=== PATIENT | female | born 1950 | race Caucasian/White ===

== ENCOUNTER 2018-01-31 13:44 | Outpatient (CLI) | payer OTHER ==
[~2018-01-31 13:44] MED LIST: CALC-8 PO; DOCU-28 PO; HYDR-565 PO; IBUP-24 PO
== END 2018-01-31 23:59 | disposition home or self-care (01) ==
LOC: 64 CT 13:44
PROVIDERS: ATTEND Surgery
DX: S09.90XA Unspecified injury of head, initial encounter (principal); X58.XXXA Exposure to other specified factors, initial encounter; Y93.89 Activity, other specified; Y92.89 Other specified places as the place of occurrence of the external cause; Y99.8 Other external cause status
CPT/HCPCS: 70450

== ENCOUNTER 2018-05-23 09:39 | Outpatient (CLI) | payer OTHER ==
[2018-05-23 10:03] LABS: BASOPHILS % (AUTO) 0.5 % (0-1); EOSINOPHILS # (AUTO) 0.3 X10'3 (0-0.9); HEMATOCRIT 43.2 % (35.0-45.0); HEMOGLOBIN 14.8 g/dl (12.0-16.0); LYMPHOCYTES # (AUTO) 1.3 X10'3 (1.1-4.8); LYMPHOCYTES % (AUTO) 19.1 % (21-51); MEAN CORPUSCULAR HEMOGLOBIN 30.3 PG (27.0-31.0); MEAN CORPUSCULAR HGB CONC 34.2 % (33.0-36.5); MEAN CORPUSCULAR VOLUME 88.6 FL (78-98); MEAN PLATELET VOLUME 7.9 FL (7.4-10.4); MONOCYTES # (AUTO) 0.5 X10'3 (0-0.9); MONOCYTES % (AUTO) 8.1 % (2-12); NEUTROPHILS # (AUTO) 4.5 X10'3 (1.8-7.7); NEUTROPHILS % (AUTO) 67.3 % (42-75); PLATELET COUNT 323 X10'3 (140-440); RED BLOOD COUNT 4.88 X10'6 (4.20-5.60); RED CELL DISTRIBUTION WIDTH 12.6 % (11.5-14.5); WHITE BLOOD COUNT 6.8 X10'3 (4.5-11.0)
== END 2018-05-23 23:59 | disposition home or self-care (01) ==
LOC: LAB 09:39
PROVIDERS: ATTEND Specialist
DX: T84.52XA Infection and inflammatory reaction due to internal left hip prosthesis, initial encounter (principal); Z96.643 Presence of artificial hip joint, bilateral; Z98.51 Tubal ligation status; Y79.2 Prosthetic and other implants, materials and accessory orthopedic devices associated with adverse incidents; Y92.89 Other specified places as the place of occurrence of the external cause
CPT/HCPCS: 36415; 85025; 85651; 86140

== ENCOUNTER 2019-10-16 10:27 | Outpatient (CLI) | payer OTHER ==
[~2019-10-16 10:27] MED LIST changes: +HYDR-4353 PO; -HYDR-565 PO
== END 2019-10-16 23:59 | disposition home or self-care (01) ==
LOC: RAD 10:27
PROVIDERS: ATTEND Family Medicine
DX: M25.552 Pain in left hip (principal); Z98.890 Other specified postprocedural states; Z96.642 Presence of left artificial hip joint
CPT/HCPCS: 73502

== ENCOUNTER 2019-11-06 06:18 | Outpatient (CLI) | payer OTHER ==
[2019-11-06 06:54] LABS: BASOPHILS # (AUTO) 0.1 X10'3 (0-0.2); BASOPHILS % (AUTO) 0.9 % (0-1); EOSINOPHILS # (AUTO) 0.5 X10'3 (0-0.9); EOSINOPHILS % (AUTO) 7.2 % (0-6); LYMPHOCYTES # (AUTO) 1.4 X10'3 (1.1-4.8); LYMPHOCYTES % (AUTO) 21.2 % (21-51); MEAN CORPUSCULAR HEMOGLOBIN 30.4 PG (27.0-31.0); MEAN CORPUSCULAR HGB CONC 34.2 g/dL (33.0-36.5); MEAN CORPUSCULAR VOLUME 88.7 FL (78-98); MEAN PLATELET VOLUME 7.8 FL (7.4-10.4); MONOCYTES # (AUTO) 0.6 X10'3 (0-0.9); MONOCYTES % (AUTO) 8.8 % (2-12); NEUTROPHILS # (AUTO) 4.2 X10'3 (1.8-7.7); NEUTROPHILS % (AUTO) 61.9 % (42-75); PLATELET COUNT 318 X10'3 (140-440); RED BLOOD COUNT 4.62 X10'6 (4.20-5.60); RED CELL DISTRIBUTION WIDTH 13.1 % (11.5-14.5); WHITE BLOOD COUNT 6.8 X10'3 (4.5-11.0)
[2019-11-06 07:07] LABS: ALANINE AMINOTRANSFERASE 23 U/L (12-78); ALBUMIN 3.5 G/DL (3.4-5.0); ALBUMIN/GLOBULIN RATIO 1.1 (1.1-1.5); ALKALINE PHOSPHATASE 76 IU/L (46-116); ANION GAP 6 (8-16); ASPARTATE AMINO TRANSFERASE 18 U/L (10-37); BILIRUBIN,TOTAL 0.3 MG/DL (0.1-1.0); BLOOD UREA NITROGEN 25 MG/DL (7-18); BUN/CREATININE RATIO 32.5 (6.6-38.0); CALCIUM 8.5 MG/DL (8.5-10.1); CHLORIDE 110 MMOL/L (99-107); CHOL/HDL RATIO 3.1 (0.00-4.99); CHOLESTEROL 210 MG/DL (0-200); CREATININE 0.77 MG/DL (0.40-0.90); GLUCOSE 96 MG/DL (70-104); HDL CHOLESTEROL 68 MG/DL (35-60); LDL CHOLESTEROL 130 MG/DL (50-100); POTASSIUM 4.3 MMOL/L (3.5-5.1); SODIUM 144 MMOL/L (135-145); TOTAL CARBON DIOXIDE 28.5 MMOL/L (24-32); TOTAL PROTEIN 6.8 G/DL (6.4-8.2); TRIGLYCERIDES 49 MG/DL (20-135); eGFR 74 ML/MIN
== END 2019-11-06 23:59 | disposition home or self-care (01) ==
LOC: LAB 06:18
PROVIDERS: ATTEND Family Medicine
DX: E78.5 Hyperlipidemia, unspecified (principal); R53.81 Other malaise; I10 Essential (primary) hypertension
CPT/HCPCS: 36415; 80053; 80061; 85025

== ENCOUNTER 2019-12-13 08:38 | Outpatient (CLI) | payer OTHER | END 2019-12-13 23:59 | disposition home or self-care (01) | LOC: RAD 08:38 | PROVIDERS: ATTEND Family Medicine | DX: R14.0 Abdominal distension (gaseous) (principal) | CPT/HCPCS: 76700 ==

== ENCOUNTER 2020-01-15 06:15 | Outpatient (CLI) | payer OTHER ==
[2020-01-15 11:52] LABS: CREATININE 0.79 MG/DL (0.40-0.90); eGFR 72 ML/MIN
== END 2020-01-15 23:59 | disposition home or self-care (01) ==
LOC: LAB 06:15
PROVIDERS: ATTEND Family Medicine
DX: Z13.89 Encounter for screening for other disorder (principal)
CPT/HCPCS: 36415; 82565

== ENCOUNTER 2020-01-16 08:37 | Outpatient (CLI) | payer OTHER ==
[2020-01-16] MEDS ORDERED: iohexol 300mg/ml 100ml inj. ONE (08:50)
== END 2020-01-16 23:59 | disposition home or self-care (01) ==
LOC: 64 CT 08:37
PROVIDERS: ATTEND Family Medicine
DX: K57.30 Diverticulosis of large intestine without perforation or abscess without bleeding (principal); K76.89 Other specified diseases of liver
CPT/HCPCS: 74177; Q9967

== ENCOUNTER 2020-01-29 06:13 | Day surgery (SDC) | payer OTHER ==
[2020-01-29 06:20] VITALS: BP 148/92
[2020-01-29] MEDS ORDERED: LIDOcaine Viscous 15ml cup ONE (06:24)
[2020-01-29] MEDS ORDERED: MIDAZolam 5mg/5ml vial ONE (06:24)
[2020-01-29] MEDS ORDERED: fentaNYL/PF 50MCG/1 ML 2ML syringe ONE (06:24)
[2020-01-29] MEDS ORDERED: DICY10CA88 PO (06:34)
[2020-01-29 07:35] VITALS: BP 125/52
[2020-01-29 07:45] VITALS: BP 123/73
[2020-01-29 07:55] VITALS: BP 122/73
== END 2020-01-29 08:15 | disposition home or self-care (01) ==
LOC: GI LAB 06:13
PROVIDERS: ATTEND Internal Medicine Gastroenterology
DX: Z12.11 Encounter for screening for malignant neoplasm of colon (principal); K57.30 Diverticulosis of large intestine without perforation or abscess without bleeding; D12.0 Benign neoplasm of cecum; Z80.0 Family history of malignant neoplasm of digestive organs
CPT/HCPCS: 45385; 99152; C1773; J2250; J3010; J7040; 99153

== ENCOUNTER 2020-05-28 13:33 | Outpatient (CLI) | payer BC, OTHER ==
[~2020-05-28 13:33] MED LIST changes: -CALC-8 PO; +DICY10CA88 PO; -DOCU-28 PO; -HYDR-4353 PO
== END 2020-05-28 23:59 | disposition home or self-care (01) ==
LOC: RAD 13:33
PROVIDERS: ATTEND Family Medicine
DX: M79.672 Pain in left foot (principal); R60.9 Edema, unspecified
CPT/HCPCS: 73721

== ENCOUNTER 2020-08-04 10:05 | Outpatient (CLI) | payer BC | END 2020-08-04 23:59 | disposition home or self-care (01) | LOC: LAB 10:05 | PROVIDERS: ATTEND Family Medicine | DX: E03.9 Hypothyroidism, unspecified (principal) | CPT/HCPCS: 36415; 84439; 84443; 84481 ==

== ENCOUNTER 2020-12-09 06:11 | Outpatient (CLI) | payer BC ==
[2020-12-09 07:54] LABS: BASOPHILS # (AUTO) 0.1 X10'3 (0-0.2); BASOPHILS % (AUTO) 0.7 % (0-1); EOSINOPHILS # (AUTO) 0.3 X10'3 (0-0.9); EOSINOPHILS % (AUTO) 4.5 % (0-6); HEMATOCRIT 43.6 % (35.0-45.0); HEMOGLOBIN 14.5 g/dl (12.0-16.0); LYMPHOCYTES # (AUTO) 1.4 X10'3 (1.1-4.8); LYMPHOCYTES % (AUTO) 19.2 % (21-51); MEAN CORPUSCULAR HEMOGLOBIN 29.5 PG (27.0-31.0); MEAN CORPUSCULAR HGB CONC 33.2 g/dL (33.0-36.5); MEAN CORPUSCULAR VOLUME 88.9 FL (78-98); MEAN PLATELET VOLUME 8.4 FL (7.4-10.4); MONOCYTES # (AUTO) 0.6 X10'3 (0-0.9); MONOCYTES % (AUTO) 8.3 % (2-12); NEUTROPHILS % (AUTO) 67.3 % (42-75); PLATELET COUNT 320 X10'3 (140-440); RED CELL DISTRIBUTION WIDTH 13.1 % (11.5-14.5); WHITE BLOOD COUNT 7.5 X10'3 (4.5-11.0)
[2020-12-09 08:04] LABS: ALANINE AMINOTRANSFERASE 28 U/L (12-78); ALBUMIN 3.7 G/DL (3.4-5.0); ALKALINE PHOSPHATASE 83 IU/L (46-116); ANION GAP 9 (8-16); ASPARTATE AMINO TRANSFERASE 20 U/L (10-37); BILIRUBIN,TOTAL 0.4 MG/DL (0.1-1.0); BLOOD UREA NITROGEN 20 MG/DL (7-18); BUN/CREATININE RATIO 30.8 (6.6-38.0); CALCIUM 9.1 MG/DL (8.5-10.1); CHLORIDE 107 MMOL/L (99-107); CREATININE 0.65 MG/DL (0.40-0.90); GLUCOSE 102 MG/DL (70-104); POTASSIUM 4.3 MMOL/L (3.5-5.1); SODIUM 144 MMOL/L (135-145); TOTAL CARBON DIOXIDE 27.9 MMOL/L (24-32); TOTAL PROTEIN 7.5 G/DL (6.4-8.2); eGFR 90 ML/MIN
== END 2020-12-09 23:59 | disposition home or self-care (01) ==
LOC: LAB 06:11
PROVIDERS: ATTEND Family Medicine
DX: R70.0 Elevated erythrocyte sedimentation rate (principal); R94.4 Abnormal results of kidney function studies
CPT/HCPCS: 36415; 80053; 85025; 85651

== ENCOUNTER 2020-12-11 08:37 | Outpatient (CLI) | payer BC | END 2020-12-11 23:59 | disposition home or self-care (01) | LOC: 64 CT 08:37 | PROVIDERS: ATTEND Family Medicine | DX: S06.0X0A Concussion without loss of consciousness, initial encounter (principal); X58.XXXA Exposure to other specified factors, initial encounter; Y93.89 Activity, other specified; Y92.89 Other specified places as the place of occurrence of the external cause; Y99.8 Other external cause status | CPT/HCPCS: 70470; Q9967 ==

== ENCOUNTER 2021-04-11 14:23 | Emergency (ER) | payer BC, MEDICARE ==
[~2021-04-11] VITALS: Ht 167.6 cm; Wt 63.0 kg
[2021-04-11 14:41] VITALS: BP 146/91
[2021-04-11] MEDS ORDERED: ALBU6.7H9 INH (15:18)
[2021-04-11] MEDS ORDERED: DEXA4TAB67 PO (15:18)
[2021-04-11] MEDS ORDERED: AZIT-31 PO (15:18)
--- NOTE | 2021-04-11 15:25 | NUR ---
PT SEEN AND DC'D BY PROVIDER
== END 2021-04-11 15:30 | disposition home or self-care (01) ==
LOC: ER 14:23
DX: U07.1 COVID-19 (principal); J40 Bronchitis, not specified as acute or chronic
CPT/HCPCS: 71045; 99283

== ENCOUNTER 2022-01-19 06:13 | Outpatient (CLI) | payer BC, MEDICARE ==
[~2022-01-19 06:13] MED LIST changes: +ALBU6.7H9 INH; +DEXA4TAB67 PO
[2022-01-19 07:23] LABS: BASOPHILS # (AUTO) 0.1 X10'3 (0-0.2); EOSINOPHILS # (AUTO) 0.6 X10'3 (0-0.9); EOSINOPHILS % (AUTO) 8.5 % (0-6); HEMATOCRIT 45.1 % (35.0-45.0); HEMOGLOBIN 14.9 g/dl (12.0-16.0); LYMPHOCYTES # (AUTO) 1.4 X10'3 (1.1-4.8); LYMPHOCYTES % (AUTO) 19.2 % (21-51); MEAN CORPUSCULAR HEMOGLOBIN 28.9 PG (27.0-31.0); MEAN CORPUSCULAR HGB CONC 33.1 g/dL (33.0-36.5); MEAN CORPUSCULAR VOLUME 87.2 FL (78-98); MEAN PLATELET VOLUME 8.2 FL (7.4-10.4); MONOCYTES # (AUTO) 0.6 X10'3 (0-0.9); MONOCYTES % (AUTO) 8.3 % (2-12); NEUTROPHILS # (AUTO) 4.5 X10'3 (1.8-7.7); PLATELET COUNT 333 X10'3 (140-440); RED BLOOD COUNT 5.17 X10'6 (4.20-5.60); RED CELL DISTRIBUTION WIDTH 13.4 % (11.5-14.5); WHITE BLOOD COUNT 7.2 X10'3 (4.5-11.0)
[2022-01-19 08:11] LABS: ALANINE AMINOTRANSFERASE 22 U/L (12-78); ALBUMIN 3.6 G/DL (3.4-5.0); ALKALINE PHOSPHATASE 87 IU/L (46-116); ANION GAP 8 (8-16); ASPARTATE AMINO TRANSFERASE 22 U/L (10-37); BILIRUBIN,TOTAL 0.5 MG/DL (0.1-1.0); BLOOD UREA NITROGEN 19 MG/DL (7-18); BUN/CREATININE RATIO 23.8 (6.6-38.0); CALCIUM 8.7 MG/DL (8.5-10.1); CHLORIDE 108 MMOL/L (99-107); CHOLESTEROL 237 MG/DL (0-200); GLUCOSE 108 MG/DL (70-104); HDL CHOLESTEROL 79 MG/DL (35-60); LDL CHOLESTEROL 127 MG/DL (50-100); SODIUM 143 MMOL/L (135-145); TOTAL CARBON DIOXIDE 26.6 MMOL/L (24-32); TOTAL PROTEIN 7.2 G/DL (6.4-8.2); TRIGLYCERIDES 86 MG/DL (20-135); eGFR 70 ML/MIN
[2022-01-19 08:14] LABS: C-REACTIVE PROTEIN < 0.05 MG/DL (0.0-0.5)
== END 2022-01-19 23:59 | disposition home or self-care (01) ==
LOC: LAB 06:13
PROVIDERS: ATTEND Family Medicine
DX: R10.9 Unspecified abdominal pain (principal); R70.0 Elevated erythrocyte sedimentation rate; E78.5 Hyperlipidemia, unspecified; E03.9 Hypothyroidism, unspecified
CPT/HCPCS: 36415; 80053; 80061; 84439; 84443; 85025; 85651; 86140

== ENCOUNTER 2022-05-11 06:10 | Outpatient (CLI) | payer BC, MEDICARE ==
[2022-05-11 06:39] LABS: BASOPHILS % (AUTO) 0.7 % (0-1); EOSINOPHILS # (AUTO) 0.5 X10'3 (0-0.9); EOSINOPHILS % (AUTO) 7.3 % (0-6); HEMATOCRIT 42.9 % (35.0-45.0); HEMOGLOBIN 14.2 g/dl (12.0-16.0); LYMPHOCYTES # (AUTO) 1.5 X10'3 (1.1-4.8); LYMPHOCYTES % (AUTO) 22.3 % (21-51); MEAN CORPUSCULAR HEMOGLOBIN 29.3 PG (27.0-31.0); MEAN CORPUSCULAR HGB CONC 33.2 g/dL (33.0-36.5); MEAN CORPUSCULAR VOLUME 88.2 FL (78-98); MEAN PLATELET VOLUME 7.7 FL (7.4-10.4); MONOCYTES # (AUTO) 0.6 X10'3 (0-0.9); MONOCYTES % (AUTO) 8.1 % (2-12); NEUTROPHILS # (AUTO) 4.3 X10'3 (1.8-7.7); NEUTROPHILS % (AUTO) 61.6 % (42-75); PLATELET COUNT 321 X10'3 (140-440); RED BLOOD COUNT 4.86 X10'6 (4.20-5.60); RED CELL DISTRIBUTION WIDTH 13.3 % (11.5-14.5)
[2022-05-11 06:56] LABS: ALANINE AMINOTRANSFERASE 27 U/L (12-78); ALBUMIN 3.6 G/DL (3.4-5.0); ALBUMIN/GLOBULIN RATIO 1.1 (1.1-1.5); ALKALINE PHOSPHATASE 87 IU/L (46-116); ANION GAP 7 (8-16); ASPARTATE AMINO TRANSFERASE 24 U/L (10-37); BILIRUBIN,TOTAL 0.5 MG/DL (0.1-1.0); BLOOD UREA NITROGEN 18 MG/DL (7-18); BUN/CREATININE RATIO 23.7 (6.6-38.0); CALCIUM 8.5 MG/DL (8.5-10.1); CHLORIDE 108 MMOL/L (99-107); CHOLESTEROL 227 MG/DL (0-200); CREATININE 0.76 MG/DL (0.40-0.90); GLUCOSE 101 MG/DL (70-104); HDL CHOLESTEROL 75 MG/DL (35-60); LDL CHOLESTEROL 136 MG/DL (50-100); POTASSIUM 4.1 MMOL/L (3.5-5.1); SODIUM 143 MMOL/L (135-145); TOTAL CARBON DIOXIDE 27.7 MMOL/L (24-32); TOTAL PROTEIN 6.9 G/DL (6.4-8.2); TRIGLYCERIDES 69 MG/DL (20-135); eGFR 74 ML/MIN
== END 2022-05-11 23:59 | disposition home or self-care (01) ==
LOC: LAB 06:10
PROVIDERS: ATTEND Family Medicine
DX: I27.0 Primary pulmonary hypertension (principal)
CPT/HCPCS: 36415; 80053; 80061; 84443; 85025

== ENCOUNTER 2023-03-08 07:33 | Outpatient (CLI) | payer BC, MEDICARE ==
[~2023-03-08 07:33] MED LIST changes: +ALBU6.7H14 INH; -ALBU6.7H9 INH
[2023-03-08 08:01] LABS: BASOPHILS # (AUTO) 0.1 X10'3 (0-0.2); BASOPHILS % (AUTO) 0.6 % (0-1); EOSINOPHILS # (AUTO) 0.3 X10'3 (0-0.9); EOSINOPHILS % (AUTO) 3.9 % (0-6); HEMATOCRIT 43.3 % (35.0-45.0); HEMOGLOBIN 14.6 g/dl (12.0-16.0); LYMPHOCYTES # (AUTO) 1.3 X10'3 (1.1-4.8); LYMPHOCYTES % (AUTO) 16.1 % (21-51); MEAN CORPUSCULAR HEMOGLOBIN 30.3 PG (27.0-31.0); MEAN CORPUSCULAR HGB CONC 33.8 g/dL (33.0-36.5); MEAN CORPUSCULAR VOLUME 89.7 FL (78-98); MEAN PLATELET VOLUME 8.2 FL (7.4-10.4); MONOCYTES # (AUTO) 0.6 X10'3 (0-0.9); MONOCYTES % (AUTO) 7.1 % (2-12); NEUTROPHILS % (AUTO) 72.3 % (42-75); PLATELET COUNT 317 X10'3 (140-440); RED BLOOD COUNT 4.83 X10'6 (4.20-5.60); RED CELL DISTRIBUTION WIDTH 13.4 % (11.5-14.5); WHITE BLOOD COUNT 8.2 X10'3 (4.5-11.0)
[2023-03-08 08:30] LABS: ALANINE AMINOTRANSFERASE 23 U/L (12-78); ALBUMIN 3.7 G/DL (3.4-5.0); ALBUMIN/GLOBULIN RATIO 1.1 (1.1-1.5); ALKALINE PHOSPHATASE 95 IU/L (46-116); ANION GAP 10 (8-16); ASPARTATE AMINO TRANSFERASE 25 U/L (10-37); BILIRUBIN,TOTAL 0.5 MG/DL (0.1-1.0); BLOOD UREA NITROGEN 21 MG/DL (7-18); BUN/CREATININE RATIO 24.7 (10.0-20.0); CALCIUM 8.9 MG/DL (8.5-10.1); CHLORIDE 107 MMOL/L (99-107); CREATININE 0.85 MG/DL (0.40-0.90); GLUCOSE 107 MG/DL (70-104); POTASSIUM 3.9 MMOL/L (3.5-5.1); SODIUM 143 MMOL/L (135-145); TOTAL CARBON DIOXIDE 26.4 MMOL/L (24-32); TOTAL PROTEIN 7.1 G/DL (6.4-8.2); eGFR 65 ML/MIN
[2023-03-08 08:40] LABS: CHOL/HDL RATIO 2.9 (0.00-4.99); CHOLESTEROL 217 MG/DL (0-200); HDL CHOLESTEROL 74 MG/DL (35-60); LDL CHOLESTEROL 126 MG/DL (50-100); TRIGLYCERIDES 60 MG/DL (20-135)
== END 2023-03-08 23:59 | disposition home or self-care (01) ==
LOC: LAB 07:33
PROVIDERS: ATTEND Family Medicine
DX: E78.5 Hyperlipidemia, unspecified (principal); E03.9 Hypothyroidism, unspecified
CPT/HCPCS: 36415; 80053; 80061; 84443; 85025

== ENCOUNTER 2023-03-09 07:28 | Day surgery (SDC) | payer BC, MEDICARE ==
[~2023-03-09] VITALS: Ht 167.6 cm; Wt 71.8 kg
[2023-03-09 07:37] VITALS: BP 145/91
[2023-03-09] MEDS ORDERED: fentaNYL/PF 50MCG/1 ML 2ML syringe ONE (07:58)
[2023-03-09] MEDS ORDERED: MIDAZolam 1 MG/ML 5ML VIAL ONE (07:58)
[2023-03-09 10:00] VITALS: BP 128/74
[2023-03-09 10:10] VITALS: BP 119/71
[2023-03-09 10:20] VITALS: BP 123/76
[2023-03-09 10:30] VITALS: BP 135/89
== END 2023-03-09 10:35 | disposition home or self-care (01) ==
LOC: GI LAB 07:28
PROVIDERS: ATTEND Internal Medicine Gastroenterology
DX: Z12.11 Encounter for screening for malignant neoplasm of colon (principal); K57.30 Diverticulosis of large intestine without perforation or abscess without bleeding; Z96.643 Presence of artificial hip joint, bilateral; Z98.41 Cataract extraction status, right eye; Z98.42 Cataract extraction status, left eye; Z72.89 Other problems related to lifestyle; Z86.010 Personal history of colon polyps; Z80.0 Family history of malignant neoplasm of digestive organs
CPT/HCPCS: 45378; 99152; 99153; J2250; J3010; J7030; Z7512; A4620

== ENCOUNTER 2024-01-02 17:14 | Emergency (ER) | payer BC, MEDICARE ==
[~2024-01-02] VITALS: Ht 167.6 cm; Wt 65.9 kg
[2024-01-02 17:18] VITALS: BP 118/55; PULSE 77; O2SAT 98
[2024-01-02] MEDS: oxyCODONE/APAP 5-325mg tablet PO ONE (17:26)
[2024-01-02] MEDS ORDERED: OXYC-150 PO (18:02)
[2024-01-02] MEDS ORDERED: ONDA4TAB12 PO (18:02)
[2024-01-02] MEDS: fentaNYL/PF 50MCG/1 ML 2ML syringe IM ONE (18:31)
[2024-01-02 18:42] VITALS: RESP 17
[2024-01-02 19:54] VITALS: TEMP 98.6
== END 2024-01-02 19:53 | disposition home or self-care (01) ==
LOC: ER 17:15
DX: S42.291A Other displaced fracture of upper end of right humerus, initial encounter for closed fracture (principal); W18.39XA Other fall on same level, initial encounter; Y93.89 Activity, other specified; Y92.89 Other specified places as the place of occurrence of the external cause; Y99.8 Other external cause status
CPT/HCPCS: 29105; 73030; 96372; 99283; J3010; 99285; A4565; A6446; A6449

== ENCOUNTER 2024-08-13 12:49 | Outpatient (CLI) | payer BC, MEDICARE ==
[~2024-08-13 12:49] MED LIST changes: -ALBU6.7H14 INH; -DEXA4TAB67 PO; -DICY10CA88 PO; -IBUP-24 PO; +ONDA-243 PO; +OXYC-150 PO
== END 2024-08-13 23:59 | disposition home or self-care (01) ==
LOC: RAD 12:49
PROVIDERS: ATTEND Family Medicine
DX: M89.8X7 Other specified disorders of bone, ankle and foot (principal)
CPT/HCPCS: 73630